=== PATIENT | male | born 1965 | race Caucasian/White ===

== ENCOUNTER 2016-07-17 16:03 | Emergency (ER) | payer MEDICARE ==
[2016-07-17] MEDS ORDERED: Ondansetron HCl/PF 4 MG/2 ML Vial ONE (16:30)
[2016-07-17 16:45] LABS: ALT (SGPT) 39 U/L (0-55); AST (SGOT) 37 U/L (5-34); Alkaline Phosphatase 68 U/L (40-150); Anion Gap 16 mmol/L (10-20); BUN (Urea Nitrogen) 31 mg/dL (8.9-20.6); Bilirubin, Total 0.7 mg/dL (0.2-1.2); Calc. Creatinine Clearance 0 mL/min (70-130); Calcium 8.3 mg/dL (7.8-10.44); Carbon Dioxide 19 mmol/L (22-29); Chloride 100 mmol/L (98-107); Estimated GFR-MDRD 49; Globulin 4.1 g/dL (2.4-3.5); Lipase 11 U/L (8-78); Protein, Total 7.6 g/dL (6.0-8.3)
[2016-07-17 16:52] LABS: Troponin I Less than 0.010 ng/mL (< 0.028)
[2016-07-17 16:52] LABS: Lactic Acid - Sepsis 3.2 mmol/L (0.5-2.2)
[2016-07-17 17:07] LABS: Hematocrit 45.6 % (42.0-52.0); Mean Platelet Volume 8.3 fL (7.4-10.4); Red Blood Cell (RBC) Count 5.02 mill/uL (4.70-6.10); White Blood Cell (WBC) Count 11.8 thou/uL (4.8-10.8)
[2016-07-17] MEDS ORDERED: Promethazine HCl 25 MG/ML VIAL ONE (17:12)
[2016-07-17 17:49] LABS: Band 28 % (5-11); Neutrophil 68 % (42-75)
--- NOTE | 2016-07-17 22:39 | CT ---
CT ABDOMEN AND PELVIS WITH CONTRAST 07/17/[address] of the abdomen and pelvis was done after an injection of IV contrast. Oral contrast was de ferred by request. There is a large consolidation in the medial basilar portion of the right lower lobe, consistent wit h pneumonia. Additionally, there are some spotty infiltrates developing in the left lower lobe sugge stive of a developing pneumonia here as well. The liver, spleen, pancreas, adrenal glands, kidneys and abdominal aorta all appear normal. The gall bladder is rather large, measuring nearly 11 cm in length, but its grant are not thick, nor do I see any definite gallstones. It may just be reactive due to the right lower lobe pneumonia up above. The bowel gas pattern is normal. There is no distended bowel to suggest obstruction. The appendix ap pears normal. No free air or free fluid is seen. CT of the pelvis shows no masses, fluid collections or inflammatory changes. There is a disc protruding centrally and slightly towards the left at the L5-S1 level with some calc ification in its margin. Additionally, there is a moderate degree of central canal stenosis present at T10-11 due to some ligamentous calcifications and a small canal. IMPRESSION: 1. Dense consolidated right lower lobe pneumonia. 2. Patchy left lower lobe infiltrate presumed to be a developing pneumonia. 3. Gallbladder is enlarged but this may just be reactive due to the pneumonia mentioned above. 4. Central and slightly left sided disc bulge at L5-S1. Central canal stenosis at T10-T11. POS: HOME
--- NOTE | 2016-07-17 22:43 | CT ---
CT OF THE THORAX WITHOUT CONTRAST 07/17/[address], a CT of the chest was done. Axial slices were acquired, then coronal rec onstructions were done. There is a very dense right lower lobe consolidation with air bronchograms consistent with a pneumon ia. Additionally, there is patchy infiltrate forming in the left lower lobe consistent with a develo ping pneumonia. There may be a small amount of streaking in the lingula as well. There are no large effusions. No pulmonary masses were appreciated on this noncontrast study. The mediastinum showed no definite mass within the limitations of a noncontrast study. There are a l arge number of small nodes in the carinal region and anterior to the marisela, not unexpected given th e above findings. There is no pericardial fluid evident. IMPRESSION: Dense right lower lobe pneumonia. Developing left lower lobe pneumonia. POS: HOME
== END 2016-07-17 17:35 | disposition home or self-care (01) ==
LOC: BURERS 16:03
DX: J18.9 Pneumonia, unspecified organism (principal); I10 Essential (primary) hypertension; J45.909 Unspecified asthma, uncomplicated; F31.9 Bipolar disorder, unspecified; F17.210 Nicotine dependence, cigarettes, uncomplicated
CPT/HCPCS: 36415; 71250; 74177; 80053; 82553; 83605; 83690; 84484; 85025; 93005; 96361; 96374; 96375; J2405; J2550

== ENCOUNTER 2016-07-18 10:10 | Outpatient (CLI) | payer MEDICARE ==
[2016-07-18 11:11] LABS: Anion Gap 12 mmol/L (10-20); LDL Cholesterol, Calculated 37 mg/dL
[2016-07-18 12:05] LABS: ALT (SGPT) 38 U/L (0-55); AST (SGOT) 44 U/L (5-34); Alkaline Phosphatase 100 U/L (40-150); BUN (Urea Nitrogen) 25 mg/dL (8.9-20.6); Bilirubin, Total 1.3 mg/dL (0.2-1.2); Calc. Creatinine Clearance 0 mL/min (70-130); Calcium 7.6 mg/dL (7.8-10.44); Carbon Dioxide 20 mmol/L (22-29); Chloride 106 mmol/L (98-107); Estimated GFR-MDRD 73; Globulin 3.2 g/dL (2.4-3.5); Protein, Total 6.3 g/dL (6.0-8.3)
[2016-07-18 12:47] LABS: Hemoglobin A1c 4.8 % (4.0-6.0)
[2016-07-18 13:21] LABS: Band 16 % (5-11); Hematocrit 41.7 % (42.0-52.0); Neutrophil 79 % (42-75); Red Blood Cell (RBC) Count 4.58 mill/uL (4.70-6.10); White Blood Cell (WBC) Count 6.9 thou/uL (4.8-10.8)
== END 2016-07-18 10:11 | disposition home or self-care (01) ==
LOC: HPCALD 10:10
PROVIDERS: ATTEND Family Medicine
DX: R73.9 Hyperglycemia, unspecified (principal); D72.825 Bandemia; E87.1 Hypo-osmolality and hyponatremia; N28.9 Disorder of kidney and ureter, unspecified; R74.0 Nonspecific elevation of levels of transaminase and lactic acid dehydrogenase [LDH]; I10 Essential (primary) hypertension; E29.1 Testicular hypofunction; N52.9 Male erectile dysfunction, unspecified
CPT/HCPCS: 36415; 80053; 80061; 83036; 84153; 84403; 84443; 85025

== ENCOUNTER 2016-07-21 05:40 | Emergency (ER) | payer MEDICARE ==
[2016-07-21] MEDS ORDERED: HYDROcodone/Acetaminophen 5/325 mg Tablet ONE (06:07)
--- NOTE | 2016-07-21 11:25 | RAD ---
CHEST 2 VIEWS: Date: 07/21/16 Comparison is made with the 07/17/16 CT scan which showed a dense right lower lobe pneumonia, as wel l as a developing pneumonia in the left lower lobe. The dense right lower lobe pneumonia is still present. It is difficult to compare exactly with the C T. The infiltrative changes in the left lower lobe, however, appear to have worsened some in the int erval. The upper lobes are clear. There are no large effusions, but there could be small ones presen t. IMPRESSION: Bibasilar pneumonia. The left lower lobe infiltrate is probably a little worse than it was when the CT was done. CODE T. POS: HOME
== END 2016-07-21 06:58 | disposition left against medical advice (07) ==
LOC: BURERS 05:40
DX: J18.9 Pneumonia, unspecified organism (principal); I10 Essential (primary) hypertension; J45.909 Unspecified asthma, uncomplicated; F17.210 Nicotine dependence, cigarettes, uncomplicated; F31.9 Bipolar disorder, unspecified
CPT/HCPCS: 71020

== ENCOUNTER 2016-08-01 13:01 | Outpatient (CLI) | payer MEDICARE | END 2016-08-01 13:02 | disposition home or self-care (01) | LOC: HPCALD 13:01 | PROVIDERS: ATTEND Family Medicine | DX: E29.1 Testicular hypofunction (principal) | CPT/HCPCS: 36415; 84403 ==

== ENCOUNTER 2016-08-03 11:37 | Outpatient (CLI) | payer MEDICARE | END 2016-08-03 11:38 | LOC: HPCALD 11:37 | PROVIDERS: ATTEND Family Medicine | DX: E29.1 Testicular hypofunction (principal) | CPT/HCPCS: 36415; 84403 ==

== ENCOUNTER 2016-08-06 16:50 | Outpatient (CLI) | payer MEDICARE ==
--- NOTE | 2016-08-06 23:22 | RAD ---
CHEST TWO VIEWS: History: Community acquired pneumonia. Comparison: 07-21-16 FINDINGS: The bibasilar airspace opacities have improved. There is calcific tendinosis of the right rotator c uff. No pneumothorax or large effusion. Moderate spondylitic changes of the thoracic spine. IMPRESSION: 1. Improving bibasilar pneumonia. Minimal infiltrates remain. POS: [facility]
== END 2016-08-06 16:51 | disposition home or self-care (01) ==
LOC: BURRAD 16:50
PROVIDERS: ATTEND Family Medicine
DX: J18.9 Pneumonia, unspecified organism (principal)
CPT/HCPCS: 71020

== ENCOUNTER 2017-01-27 15:08 | Emergency (ER) | payer MEDICARE ==
[2017-01-27] MEDS ORDERED: Ondansetron ODT 4 MG TAB ONE (15:32)
[2017-01-27] MEDS ORDERED: Prochlorperazine 10 MG/2 ML VIAL ONE (15:35)
[2017-01-27] MEDS ORDERED: methylPREDNISolone Sod Succ/PF 125 MG/2 ML VIAL ONE (15:35)
[2017-01-27] MEDS ORDERED: diphenhydrAMINE HCl 50 MG/ML 1 ML VIAL ONE (15:35)
[2017-01-27 15:41] LABS: Eosinophils 2 % (0-10); Hemoglobin 14.8 g/dL (14.0-18.0); Lymphocytes 25 % (21-51); MDiff Complete? YES; Mean Corpuscular HGB CONC 34.2 g/dL (32.0-36.0); Mean Corpuscular Hemoglobin 31.6 pg (27.0-31.0); Mean Corpuscular Volume 92.4 fl (80.0-94.0); Mean Platelet Volume 6.7 fL (7.4-10.4); Monocytes 14 % (0-10); Neutrophil 59 % (42-75); Platelet Count 174 thou/uL (130-400); RBC Distribution Width 12.4 % (11.5-14.5); Red Blood Cell (RBC) Count 4.68 mill/uL (4.70-6.10); White Blood Cell (WBC) Count 4.4 thou/uL (4.8-10.8)
[2017-01-27 15:46] LABS: Anion Gap 9 mmol/L (10-20); BUN (Urea Nitrogen) 14 mg/dL (8.9-20.6); Calc. Creatinine Clearance 0 mL/min (70-130); Calcium 9.1 mg/dL (7.8-10.44); Carbon Dioxide 26 mmol/L (22-29); Chloride 106 mmol/L (98-107); Estimated GFR-MDRD Greater than 90; Glucose 103 mg/dL (70-105); Potassium 4.3 mmol/L (3.5-5.1); Sodium 137 mmol/L (136-145)
== END 2017-01-27 16:30 | disposition home or self-care (01) ==
LOC: BURERS 15:08
DX: I10 Essential (primary) hypertension (principal); F31.9 Bipolar disorder, unspecified; J45.909 Unspecified asthma, uncomplicated; F17.210 Nicotine dependence, cigarettes, uncomplicated; Z91.14 Patient's other noncompliance with medication regimen
CPT/HCPCS: 36415; 80048; 85025; 96374; 96375; J0780; J1200; J2930; Q0162

== ENCOUNTER 2017-04-06 16:10 | Emergency (ER) | payer MEDICARE ==
[2017-04-06] MEDS ORDERED: Lisinopril 5 MG TAB ONE (16:28)
[2017-04-06] MEDS ORDERED: cloNIDine 0.1 MG TAB ONE (16:28)
== END 2017-04-06 16:31 | disposition home or self-care (01) ==
LOC: BURERS 16:10
DX: I10 Essential (primary) hypertension (principal); Z91.14 Patient's other noncompliance with medication regimen; J45.909 Unspecified asthma, uncomplicated; F31.9 Bipolar disorder, unspecified; F17.210 Nicotine dependence, cigarettes, uncomplicated; Z79.899 Other long term (current) drug therapy
CPT/HCPCS: 99283

== ENCOUNTER 2017-04-26 14:37 | Emergency (ER) | payer MEDICARE ==
[2017-04-26] MEDS ORDERED: cloNIDine 0.1 MG TAB ONE (15:30)
[2017-04-26] MEDS ORDERED: predniSONE 20 MG TAB ONE (15:30)
[2017-04-26] MEDS ORDERED: Lisinopril 5 MG TAB ONE (15:30)
--- NOTE | 2017-04-26 20:29 | RAD ---
LUMBAR SPINE THREE VIEWS 04/26/17 Degenerative disc disease is present at L5-S1. There is disc space narrowing and osteophytes here. Mi nimal osteophytes are seen elsewhere. Slight wedging of T11-L1 is probably physiologic. No acute frac ture or area of bony destruction was seen. The SI joints are symmetrical. IMPRESSION: Degenerative disc disease at L5-S1. POS: HOME
--- NOTE | 2017-04-26 20:49 | RAD ---
RIGHT SHOULDER THREE VIEWS 04/26/17 There has been surgery in this shoulder but no prior views were available for comparison. Screws are present through the humeral head which is mildly deformed. There are osseous densities bet ween the humeral head and the acromion process that were present on prior chest films. I do not see a n acute fracture or dislocation. Heterotopic bone along the inferior aspect of the glenoid fossa is a n old finding. The AC joint is widened. The glenohumeral joint is irregular, particularly the glenoid fossa, though this is not a new finding. IMPRESSION: Postoperative and significant degenerative change but no acute traumatic findings. POS: HOME
== END 2017-04-26 15:36 | disposition home or self-care (01) ==
LOC: BURERS 14:37
DX: M54.5 Low back pain (principal); M25.511 Pain in right shoulder; I10 Essential (primary) hypertension; Z91.14 Patient's other noncompliance with medication regimen; F17.210 Nicotine dependence, cigarettes, uncomplicated; J45.909 Unspecified asthma, uncomplicated; F41.9 Anxiety disorder, unspecified; F31.9 Bipolar disorder, unspecified; Z79.899 Other long term (current) drug therapy; V44.6XXA Car passenger injured in collision with heavy transport vehicle or bus in traffic accident, initial encounter
CPT/HCPCS: 72100; J7506

== ENCOUNTER 2017-05-30 20:22 | Emergency (ER) | payer MEDICARE ==
[2017-05-30] MEDS ORDERED: Lisinopril 5 MG TAB ONE (21:00)
[2017-05-30] MEDS ORDERED: cloNIDine 0.1 MG TAB ONE (21:00)
== END 2017-05-30 21:10 | disposition home or self-care (01) ==
LOC: BURERS 20:22
DX: I10 Essential (primary) hypertension (principal); F17.210 Nicotine dependence, cigarettes, uncomplicated; J45.909 Unspecified asthma, uncomplicated; F41.9 Anxiety disorder, unspecified; F31.9 Bipolar disorder, unspecified; Z79.899 Other long term (current) drug therapy
CPT/HCPCS: 99283

== ENCOUNTER 2017-07-13 18:02 | Emergency (ER) | payer MEDICARE | END 2017-07-13 18:21 | disposition home or self-care (01) | LOC: BURERS 18:02 | DX: I10 Essential (primary) hypertension (principal); M19.90 Unspecified osteoarthritis, unspecified site; J45.909 Unspecified asthma, uncomplicated; F31.9 Bipolar disorder, unspecified; F41.9 Anxiety disorder, unspecified; F17.210 Nicotine dependence, cigarettes, uncomplicated; Z79.899 Other long term (current) drug therapy | CPT/HCPCS: 99283 ==

== ENCOUNTER 2017-09-06 06:46 | Emergency (ER) | payer MEDICARE ==
[2017-09-06] MEDS ORDERED: Ondansetron HCl/PF 4 MG/2 ML Vial ONE ×2 (07:25→09:16)
[2017-09-06 07:29] LABS: #Lymphocytes 0.8 thou/uL (1.20-3.40); #Monocytes 0.7 thou/uL (0.11-0.59); #Neutrophils 6.3 thou/uL (1.40-6.50); %Basophils 0.6 % (0.0-1.0); %Eosinophils 0.1 % (0.0-10.0); %Lymphocytes 9.9 % (21.0-51.0); %Monocytes 9.4 % (0.0-10.0); Hemoglobin 16.2 g/dL (14.0-18.0); Mean Corpuscular HGB CONC 33.8 g/dL (32.0-36.0); Mean Corpuscular Hemoglobin 29.8 pg (27.0-31.0); Mean Corpuscular Volume 88.4 fl (80.0-94.0); Mean Platelet Volume 6.4 fL (7.4-10.4); Platelet Count 303 thou/uL (130-400); RBC Distribution Width 12.6 % (11.5-14.5); Red Blood Cell (RBC) Count 5.43 mill/uL (4.70-6.10); White Blood Cell (WBC) Count 7.9 thou/uL (4.8-10.8)
[2017-09-06 07:47] LABS: ALT (SGPT) 103 U/L (8-55); AST (SGOT) 72 U/L (5-34); Albumin 4.7 g/dL (3.5-5.0); Alkaline Phosphatase 91 U/L (40-150); Anion Gap 18 mmol/L (10-20); BUN (Urea Nitrogen) 13 mg/dL (8.9-20.6); Calc. Creatinine Clearance 0 mL/min (70-130); Calcium 10.1 mg/dL (7.8-10.44); Carbon Dioxide 22 mmol/L (22-29); Chloride 105 mmol/L (98-107); Estimated GFR-MDRD 80; Globulin 4.1 g/dL (2.4-3.5); Glucose 111 mg/dL (70-105); Lipase 35 U/L (8-78); Potassium 3.7 mmol/L (3.5-5.1); Protein, Total 8.8 g/dL (6.0-8.3); Sodium 141 mmol/L (136-145)
[2017-09-06] MEDS ORDERED: Promethazine HCl 25 MG/ML VIAL ONE (08:20)
[2017-09-06] MEDS ORDERED: Iopamidol 370 76% 100 ML VIAL ONE (09:00)
[2017-09-06] MEDS ORDERED: Ketorolac Tromethamine 30 MG/ML VIAL ONE (09:16)
[2017-09-06] MEDS ORDERED: Prochlorperazine 10 MG/2 ML VIAL ONE ×3 (10:13→11:32)
[2017-09-06] MEDS ORDERED: Lisinopril 20 MG TAB ONE (10:38)
[2017-09-06] MEDS ORDERED: cloNIDine 0.1 MG TAB ONE (10:38)
--- NOTE | 2017-09-06 19:46 | RAD ---
ACUTE ABDOMEN SERIES 09/06/17 Supine and erect films show no free air beneath the diaphragm. Gas pattern is unremarkable with no si gn of obstruction, but there is considerable fecal material in the colon. No calcifications of concer n were seen in the abdomen. The bony structures are unremarkable. A chest film in the series shows a normal sized heart and clear lungs. IMPRESSION: Possible mild constipation. Exam otherwise unremarkable. POS: HOME
--- NOTE | 2017-09-06 20:03 | CT ---
CT ABDOMEN AND PELVIS WITH CONTRAST: 09/06/[address] of the abdomen and pelvis was performed for evaluation of nausea and vomiting. Axial slices were acquired, then coronal reconstructions were done. The lung bases are clear except for some minor left basilar scarring or atelectasis. There might be a few small calcifications in the distal LAD, but this is difficult to be certain about. Otherwise, th ere really does not appear to be significant calcification in the aorta. The liver, spleen, pancreas, adrenal glands, kidneys, and abdominal aorta showed no acute finding. The gallbladder is rather larg e, measuring just over 11 cm in length. No stones were detected within it, nor was the wall thick. Th ere may be some cortical scarring in the left kidney from a prior infection. The bowel is nondistended with no sign of obstruction. There is an abundant amount of fecal material in the colon. No free air or free fluid was seen. CT of the pelvis shows no pelvic masses, fluid collections, or inflammatory changes. The urinary blad irma is moderately distended. There is a fat filled inguinal hernia on the left side. There is some mi ld central bulging of the L5-S1 disc, concentric bulging of the L4-L5 disc. IMPRESSION: 1. Very large gallbladder. No stones or wall thickening appreciated. 2. Small hiatal hernia. 3. Mild constipation. POS: HOME
== END 2017-09-06 12:03 | disposition home or self-care (01) ==
LOC: BURERS 06:46
DX: A08.4 Viral intestinal infection, unspecified (principal); I10 Essential (primary) hypertension; J45.909 Unspecified asthma, uncomplicated; F41.9 Anxiety disorder, unspecified; F31.9 Bipolar disorder, unspecified; G47.00 Insomnia, unspecified; F17.210 Nicotine dependence, cigarettes, uncomplicated; Z79.899 Other long term (current) drug therapy
CPT/HCPCS: 74022; 74177; 80053; 83690; 85025; 93005; 94760; 96361; 96365; 96367; 96375; 96376; A4216; J0780; J1885; J2405; J2550

== ENCOUNTER 2018-09-03 20:33 | Emergency (ER) | payer MEDICARE ==
[2018-09-03] MEDS ORDERED: Cyclopentolate 1% Opth Drop 2 ML BOT ONE (22:06)
[2018-09-03] MEDS ORDERED: HYDROcodone/Acetaminophen 10/325 mg Tablet ONE (22:08)
[2018-09-03] MEDS ORDERED: Ibuprofen 800 MG TAB ONE (22:09)
[2018-09-03] MEDS ORDERED: Tobramycin/dex OPTH 2.5 ML BOT EA EYE SCH (22:15)
[2018-09-03] MEDS ORDERED: oFLOXacin 0.3% Opth 5 ML BOT ONE (22:15)
[2018-09-03] MEDS ORDERED: Fluorescein Opthalmic Strip EA EYE SCH (22:15)
[2018-09-03] MEDS ORDERED: Ketorolac Tromethamine 60 MG/2 ML VIAL ONE (22:19)
== END 2018-09-03 22:25 | disposition home or self-care (01) ==
LOC: BURERS 20:33
DX: T15.02XA Foreign body in cornea, left eye, initial encounter (principal); T15.01XA Foreign body in cornea, right eye, initial encounter; I10 Essential (primary) hypertension; J45.909 Unspecified asthma, uncomplicated; F41.9 Anxiety disorder, unspecified; F31.9 Bipolar disorder, unspecified; G47.00 Insomnia, unspecified; F17.210 Nicotine dependence, cigarettes, uncomplicated; Z79.899 Other long term (current) drug therapy
CPT/HCPCS: 65205; J1885

== ENCOUNTER 2018-11-28 01:17 | Emergency (ER) | payer MEDICARE ==
[2018-11-28] MEDS ORDERED: methylPREDNISolone Sod Succ/PF 125 MG/2 ML VIAL ONE (01:48)
== END 2018-11-28 02:03 | disposition home or self-care (01) ==
LOC: BURERS 01:17
DX: M54.41 Lumbago with sciatica, right side (principal); I10 Essential (primary) hypertension; J45.909 Unspecified asthma, uncomplicated; F41.9 Anxiety disorder, unspecified; F31.9 Bipolar disorder, unspecified; G47.00 Insomnia, unspecified; F17.290 Nicotine dependence, other tobacco product, uncomplicated; Z79.899 Other long term (current) drug therapy
CPT/HCPCS: 96372; 99283; J2930

== ENCOUNTER 2019-01-22 14:29 | Emergency (ER) | payer MEDICARE ==
[2019-01-22] MEDS ORDERED: Adacel (T-DAP) 0.5 ML SYRINGE ONE (15:27)
== END 2019-01-22 15:33 | disposition home or self-care (01) ==
LOC: BURERS 14:29
DX: S40.812A Abrasion of left upper arm, initial encounter (principal); S40.811A Abrasion of right upper arm, initial encounter; S80.811A Abrasion, right lower leg, initial encounter; I10 Essential (primary) hypertension; J45.909 Unspecified asthma, uncomplicated; F41.9 Anxiety disorder, unspecified; F31.9 Bipolar disorder, unspecified; G47.00 Insomnia, unspecified; F17.290 Nicotine dependence, other tobacco product, uncomplicated; Z79.899 Other long term (current) drug therapy; X58.XXXA Exposure to other specified factors, initial encounter
CPT/HCPCS: 90715; 99282

== ENCOUNTER 2019-09-08 15:11 | Emergency (ER) | payer MEDICARE | END 2019-09-08 15:24 | disposition home or self-care (01) | LOC: BURERS 15:11 | DX: S61.211A Laceration without foreign body of left index finger without damage to nail, initial encounter (principal); F41.9 Anxiety disorder, unspecified; F31.9 Bipolar disorder, unspecified; G47.00 Insomnia, unspecified; G31.84 Mild cognitive impairment of uncertain or unknown etiology; F17.290 Nicotine dependence, other tobacco product, uncomplicated; J45.909 Unspecified asthma, uncomplicated; I10 Essential (primary) hypertension; Z79.899 Other long term (current) drug therapy; W26.0XXA Contact with knife, initial encounter | CPT/HCPCS: 12001 ==

== ENCOUNTER 2019-10-02 11:18 | Outpatient (CLI) | payer MEDICARE ==
[2019-10-02 11:44] LABS: #Lymphocytes 1.5 thou/uL (1.20-3.40); #Monocytes 0.5 thou/uL (0.11-0.59); #Neutrophils 2.7 thou/uL (1.40-6.50); %Basophils 0.7 % (0.0-1.0); %Lymphocytes 31.5 % (21.0-51.0); %Monocytes 9.7 % (0.0-10.0); %Neutrophils 58.1 % (42.0-75.0); Hemoglobin 14.4 g/dL (14.0-18.0); Mean Corpuscular HGB CONC 31.2 g/dL (32.0-36.0); Mean Corpuscular Hemoglobin 28.2 pg (27.0-31.0); Mean Corpuscular Volume 90.5 fL (78.0-98.0); Mean Platelet Volume 7.3 fL (7.4-10.4); Platelet Count 192 thou/uL (130-400); RBC Distribution Width 14.2 % (11.5-14.5); Red Blood Cell (RBC) Count 5.09 mill/uL (4.70-6.10); White Blood Cell (WBC) Count 4.7 thou/uL (4.8-10.8)
[2019-10-02 12:04] LABS: ALT (SGPT) 58 U/L (8-55); AST (SGOT) 47 U/L (5-34); Albumin 4.1 g/dL (3.5-5.0); Alkaline Phosphatase 108 U/L (40-110); Anion Gap 9 mmol/L (10-20); BUN (Urea Nitrogen) 9 mg/dL (8.4-25.7); Bilirubin, Total 0.5 mg/dL (0.2-1.2); Calc. Creatinine Clearance 0 mL/min (70-130); Calcium 8.9 mg/dL (7.8-10.44); Carbon Dioxide 27 mmol/L (22-29); Chloride 104 mmol/L (98-107); Estimated GFR-MDRD 89; Globulin 3.6 g/dL (2.4-3.5); Glucose 137 mg/dL (70-105); Lipase 47 U/L (8-78); Potassium 4.4 mmol/L (3.5-5.1); Protein, Total 7.7 g/dL (6.0-8.3); Sodium 136 mmol/L (136-145)
[2019-10-02] MEDS ORDERED: Iopamidol 370 76% 100 ML VIAL ONE (13:06)
--- NOTE | 2019-10-02 18:15 | CT ---
CT ABDOMEN AND PELVIS WITH CONTRAST: 10/02/[address] of the abdomen and pelvis was done for evaluation of right upper quadrant pain. comparison is made with the prior scans of 09/06/17 and 07/17/16. The lung bases are clear except for some dependent atelectasis. The liver, spleen, pancreas, adrenal glands, kidneys, and abdominal aorta showed no acute findings. The gallbladder is generous in size measuring 10 cm long, however, this is actually smaller than it w as on either of the two prior scans. Its wall does not seem thick and I do not detect calcifications in it. The bowel shows no distention or wall thickening. The appendix appears normal. There is no free air o r free fluid. No inflammatory change is seen around bowel. CT of the pelvis shows no pelvic masses, fluid collections, or inflammatory change. A small fat fille d left inguinal hernia was noted. IMPRESSION: Generous sized gallbladder, though still smaller than most of his prior scans. My presumption is that it tends to run big in this patient. Nevertheless, if clinical symptoms point to this location, then ultrasound or a HIDA scan could be useful. POS: HOME
== END 2019-10-02 11:19 | disposition home or self-care (01) ==
LOC: BURCT 11:18
PROVIDERS: ATTEND Family Medicine
DX: B18.2 Chronic viral hepatitis C (principal); R10.11 Right upper quadrant pain
CPT/HCPCS: 36415; 74177; 80053; 83690; 85025; 87522; Q9967

== ENCOUNTER 2020-03-22 13:57 | Emergency (ER) | payer MEDICARE | END 2020-03-22 14:18 | disposition home or self-care (01) | LOC: BURERS 13:57 | DX: K11.5 Sialolithiasis (principal); I10 Essential (primary) hypertension; J45.909 Unspecified asthma, uncomplicated; F31.9 Bipolar disorder, unspecified; F41.9 Anxiety disorder, unspecified; G47.00 Insomnia, unspecified; F17.210 Nicotine dependence, cigarettes, uncomplicated; Z79.899 Other long term (current) drug therapy | CPT/HCPCS: 99283 ==

== ENCOUNTER 2020-07-14 13:29 | Emergency (ER) | payer MEDICARE ==
[2020-07-14] MEDS ORDERED: Morphine 10 MG/ML VIAL ONE (15:01)
[2020-07-14] MEDS ORDERED: Morphine 4 MG/ML VIAL ONE (16:19)
--- NOTE | 2020-07-14 17:23 | RAD ---
RIGHT ANKLE 3 VIEWS: DATE: 07/14/2020. FINDINGS: An oblique fracture of the distal fibula is present with slight displacement. The distal tibia appea rs intact. The calcaneus appears intact. IMPRESSION: Distal fibular fracture. POS: HOME
== END 2020-07-14 17:20 | disposition home or self-care (01) ==
LOC: BURERS 13:29
DX: S82.831A Other fracture of upper and lower end of right fibula, initial encounter for closed fracture (principal); I10 Essential (primary) hypertension; Z79.899 Other long term (current) drug therapy; F17.210 Nicotine dependence, cigarettes, uncomplicated; W10.9XXA Fall (on) (from) unspecified stairs and steps, initial encounter; Y93.01 Activity, walking, marching and hiking
CPT/HCPCS: 29515; 96372; J2270

== ENCOUNTER 2020-09-27 09:58 | Emergency (ER) | payer OTHER, MEDICARE ==
[~2020-09-27 09:58] MED LIST: Iopamidol 370 76% 100 ML VIAL ONE
[2020-09-27] MEDS ORDERED: Morphine 4 MG/ML VIAL ONE (10:38)
[2020-09-27] MEDS ORDERED: diphenhydrAMINE 50 MG/ML VIAL ONE (10:39)
[2020-09-27] MEDS ORDERED: diphenhydrAMINE 12.5 MG/5 ML UDCUP ONE (10:39)
[2020-09-27 10:53] LABS: #Lymphocytes 1.2 thou/uL (1.20-3.40); #Monocytes 0.9 thou/uL (0.11-0.59); #Neutrophils 4.2 thou/uL (1.40-6.50); %Basophils 0.7 % (0.0-1.0); %Eosinophils 0.6 % (0.0-10.0); %Monocytes 13.4 % (0.0-10.0); %Neutrophils 66.4 % (42.0-75.0); Hemoglobin 9.9 g/dL (14.0-18.0); Mean Corpuscular HGB CONC 30.2 g/dL (32.0-36.0); Mean Corpuscular Hemoglobin 22.8 pg (27.0-31.0); Mean Corpuscular Volume 75.4 fL (78.0-98.0); Mean Platelet Volume 6.3 fL (7.4-10.4); Platelet Count 183 thou/uL (130-400); RBC Distribution Width 19.1 % (11.5-14.5); Red Blood Cell (RBC) Count 4.34 mill/uL (4.70-6.10); White Blood Cell (WBC) Count 6.3 thou/uL (4.8-10.8)
[2020-09-27 11:10] LABS: ALT (SGPT) 63 U/L (8-55); AST (SGOT) 42 U/L (5-34); Albumin 3.9 g/dL (3.5-5.0); Alkaline Phosphatase 119 U/L (40-110); Anion Gap 12 mmol/L (10-20); BUN (Urea Nitrogen) 11 mg/dL (8.4-25.7); Bilirubin, Total Less than 0.2 mg/dL (0.2-1.2); Calc. Creatinine Clearance 0 mL/min (70-130); Carbon Dioxide 23 mmol/L (22-29); Chloride 106 mmol/L (98-107); Globulin 3.6 g/dL (2.4-3.5); Glucose 152 mg/dL (70-105); Potassium 3.9 mmol/L (3.5-5.1); Protein, Total 7.5 g/dL (6.0-8.3); Sodium 137 mmol/L (136-145)
[2020-09-27 11:16] LABS: Anisocytosis SLIGHT = 6-15 cells (100X) (0-5/hpf); MDiff Complete? YES; Microcytosis SLIGHT = 6-15 cells (100X) (0-5/hpf); Platelet Morphology Comment Appears Adequate
[2020-09-27 11:59] LABS: Bilirubin Negative (Negative); Blood, Urine Negative (Negative); Clarity Clear (Clear); Glucose, Urine (Dipstick) Negative (Negative); Ketone, Urine Negative (Negative); Leukocyte Negative (Negative); Nitrite Negative (Negative); Protein, Urine (Dipstick) Negative (Neg-Trace); Specific Gravity, Urine 1.015 (1.005-1.030); Urobilinogen 0.2 mg/dL (Less than 2); pH, Urine 7.5 (5.0-9.0)
== END 2020-09-27 12:15 | disposition home or self-care (01) ==
LOC: BURERS 09:58
DX: S20.219A Contusion of unspecified front wall of thorax, initial encounter (principal); I10 Essential (primary) hypertension; F17.210 Nicotine dependence, cigarettes, uncomplicated; Z79.899 Other long term (current) drug therapy; V59.60XA Unspecified occupant of pick-up truck or van injured in collision with unspecified motor vehicles in traffic accident, initial encounter
CPT/HCPCS: 36415; 71260; 74177; 80053; 81003; 84484; 85025; 93005; 94760; 96374; 96375; J1200; J2270; Q0163; Q9967

== ENCOUNTER 2020-10-03 21:06 | Emergency (ER) | payer OTHER, MEDICARE ==
[2020-10-03 23:24] LABS: Hemoglobin 10.1 g/dL (14.0-18.0); Mean Corpuscular HGB CONC 29.9 g/dL (32.0-36.0); Mean Corpuscular Hemoglobin 22.4 pg (27.0-31.0); Mean Platelet Volume 6.2 fL (7.4-10.4); Platelet Count 267 thou/uL (130-400); RBC Distribution Width 18.7 % (11.5-14.5); Red Blood Cell (RBC) Count 4.52 mill/uL (4.70-6.10); White Blood Cell (WBC) Count 8.1 thou/uL (4.8-10.8)
[2020-10-03 23:39] LABS: ALT (SGPT) 60 U/L (8-55); AST (SGOT) 39 U/L (5-34); Albumin 3.9 g/dL (3.5-5.0); Alkaline Phosphatase 114 U/L (40-110); Anion Gap 12 mmol/L (10-20); BUN (Urea Nitrogen) 10 mg/dL (8.4-25.7); Bilirubin, Total 0.2 mg/dL (0.2-1.2); Calc. Creatinine Clearance 0 mL/min (70-130); Calcium 8.5 mg/dL (7.8-10.44); Carbon Dioxide 25 mmol/L (22-29); Chloride 102 mmol/L (98-107); Globulin 3.8 g/dL (2.4-3.5); Glucose 104 mg/dL (70-105); Lipase 66 U/L (8-78); Potassium 4.3 mmol/L (3.5-5.1); Protein, Total 7.7 g/dL (6.0-8.3); Sodium 135 mmol/L (136-145)
[2020-10-03] MEDS ORDERED: Morphine 4 MG/ML VIAL ONE (23:49)
[2020-10-03] MEDS ORDERED: Ondansetron PF 4 MG/2 ML Vial ONE (23:49)
[2020-10-04] LABS: #Basophils 0.1 thou/uL (0.0-0.2); #Eosinphils 0.2 thou/uL (0.0-0.7); #Monocytes 1.2 thou/uL (0.11-0.59); #Neutrophils 4.6 thou/uL (1.40-6.50); %Basophils 1.3 % (0.0-1.0); %Eosinophils 2.2 % (0.0-10.0); %Lymphocytes 25.2 % (21.0-51.0); %Monocytes 14.2 % (0.0-10.0); Hypochromia SLIGHT = 6-15 cells (100X) (0-5/hpf); MDiff Complete? YES; Microcytosis SLIGHT = 6-15 cells (100X) (0-5/hpf); Platelet Morphology Comment Appears Adequate; Poikilocytosis SLIGHT = 6-15 cells (100X) (0-5/hpf)
[2020-10-04] MEDS ORDERED: HYDROcodone/Acetaminophen 5/325 mg Tablet ONE (00:58)
[2020-10-04] MEDS ORDERED: Morphine 4 MG/ML VIAL ONE (01:35)
== END 2020-10-04 01:41 | disposition home or self-care (01) ==
LOC: BURERS 21:06
DX: S20.213A Contusion of bilateral front wall of thorax, initial encounter (principal); R74.8 Abnormal levels of other serum enzymes; R10.11 Right upper quadrant pain; I10 Essential (primary) hypertension; F17.210 Nicotine dependence, cigarettes, uncomplicated; Z86.19 Personal history of other infectious and parasitic diseases; Z79.899 Other long term (current) drug therapy; V89.2XXA Person injured in unspecified motor-vehicle accident, traffic, initial encounter
CPT/HCPCS: 36415; 71046; 80053; 83690; 83880; 84484; 85025; 93005; 96374; 96375; 96376; J2270; J2405

== ENCOUNTER 2021-01-12 08:34 | Emergency (ER) | payer MEDICARE ==
[2021-01-12] MEDS ORDERED: Morphine 2 MG/ML VIAL ONE (09:21)
[2021-01-12] MEDS ORDERED: Promethazine 25 MG TAB ONE (09:21)
[2021-01-12] MEDS ORDERED: methylPREDNISolone Sod Succ/PF 125 MG/2 ML VIAL ONE (10:06)
== END 2021-01-12 10:10 | disposition home or self-care (01) ==
LOC: BURERS 08:34
DX: M54.41 Lumbago with sciatica, right side (principal); I10 Essential (primary) hypertension; F17.210 Nicotine dependence, cigarettes, uncomplicated
CPT/HCPCS: 96372; 99283; J2270; J2930; Q0169

== ENCOUNTER 2021-04-21 11:25 | Emergency (ER) | payer MEDICARE ==
[2021-04-21] MEDS ORDERED: Hyoscyamine Sulfate SL 0.125 mg Tablet ONE (12:08)
[2021-04-21] MEDS ORDERED: Ciprofloxacin 500 MG TAB ONE (12:08)
== END 2021-04-21 12:30 | disposition home or self-care (01) ==
LOC: BURERS 11:25
DX: R19.7 Diarrhea, unspecified (principal); I10 Essential (primary) hypertension; M19.90 Unspecified osteoarthritis, unspecified site; F17.210 Nicotine dependence, cigarettes, uncomplicated
CPT/HCPCS: 71046; 87045; 87046; 87177; 87427; 87449; 99284

== ENCOUNTER 2021-10-04 14:17 | Emergency (ER) | payer MEDICARE ==
[2021-10-04] MEDS ORDERED: Fentanyl 100 MCG/2 ML VIAL ONE (14:30)
[2021-10-04 14:33] LABS: #Lymphocytes 1.5 thou/uL (1.20-3.40); #Monocytes 0.7 thou/uL (0.11-0.59); #Neutrophils 5.4 thou/uL (1.40-6.50); %Basophils 0.6 % (0.0-1.0); %Eosinophils 0.2 % (0.0-10.0); %Lymphocytes 19.5 % (21.0-51.0); %Monocytes 8.8 % (0.0-10.0); %Neutrophils 70.9 % (42.0-75.0); Hemoglobin 13.3 g/dL (14.0-18.0); Mean Corpuscular Hemoglobin 28.5 pg (27.0-31.0); Mean Corpuscular Volume 86.4 fL (78.0-98.0); Platelet Count 284 thou/uL (130-400); RBC Distribution Width 15.2 % (11.5-14.5); Red Blood Cell (RBC) Count 4.67 mill/uL (4.70-6.10); White Blood Cell (WBC) Count 7.7 thou/uL (4.8-10.8)
[2021-10-04 14:46] LABS: ALT (SGPT) 42 U/L (8-55); AST (SGOT) 48 U/L (5-34); Albumin 4.1 g/dL (3.5-5.0); Alkaline Phosphatase 78 U/L (40-110); Anion Gap 17 mmol/L (10-20); BUN (Urea Nitrogen) 8 mg/dL (8.4-25.7); Bilirubin, Total 0.6 mg/dL (0.2-1.2); Calc. Creatinine Clearance 0 mL/min (70-130); Calcium 8.6 mg/dL (7.8-10.44); Carbon Dioxide 21 mmol/L (22-29); Chloride 103 mmol/L (98-107); Globulin 4.4 g/dL (2.4-3.5); Glucose 103 mg/dL (70-105); Potassium 4.4 mmol/L (3.5-5.1); Protein, Total 8.5 g/dL (6.0-8.3); Sodium 137 mmol/L (136-145)
[2021-10-04] MEDS ORDERED: Ibuprofen 800 MG TAB ONE (14:57)
[2021-10-04] MEDS ORDERED: chlordiazePOXIDE HCl 25 MG CAP PO SCH (15:00)
[2021-10-04] MEDS ORDERED: Lorazepam 2 MG/ML VIAL ONE (15:13)
[2021-10-04] MEDS ORDERED: Morphine 4 MG/ML VIAL ONE (16:24)
[2021-10-04] MEDS ORDERED: predniSONE 20 MG TAB ONE (17:29)
== END 2021-10-04 17:48 ==
LOC: BURERS 14:17
DX: S39.012A Strain of muscle, fascia and tendon of lower back, initial encounter (principal); M54.41 Lumbago with sciatica, right side; G89.29 Other chronic pain; I10 Essential (primary) hypertension; F17.210 Nicotine dependence, cigarettes, uncomplicated; W19.XXXA Unspecified fall, initial encounter
CPT/HCPCS: 72100; 72192; 80053; 85025; 96372; 96374; J2060; J2270; J3010; J7512

== ENCOUNTER 2021-12-20 06:13 | Emergency (ER) | payer OTHER, MEDICARE ==
[2021-12-20] MEDS ORDERED: Morphine 4 MG/ML VIAL ONE ×2 (06:43→07:05)
[2021-12-20] MEDS ORDERED: CEFAZOLIN 1 GM VIAL ONE (06:44)
[2021-12-20 06:50] LABS: #Basophils 0.1 thou/uL (0.0-0.2); #Eosinphils 0.2 thou/uL (0.0-0.7); #Lymphocytes 3.1 thou/uL (1.20-3.40); #Monocytes 1.1 thou/uL (0.11-0.59); #Neutrophils 5.7 thou/uL (1.40-6.50); %Basophils 1.3 % (0.0-1.0); %Eosinophils 1.8 % (0.0-10.0); %Monocytes 10.8 % (0.0-10.0); %Neutrophils 56.2 % (42.0-75.0); Hemoglobin 14.1 g/dL (14.0-18.0); Mean Corpuscular HGB CONC 33.7 g/dL (32.0-36.0); Mean Corpuscular Hemoglobin 29.9 pg (27.0-31.0); Mean Corpuscular Volume 88.9 fL (78.0-98.0); Mean Platelet Volume 7.1 fL (7.4-10.4); Platelet Count 326 thou/uL (130-400); Red Blood Cell (RBC) Count 4.71 mill/uL (4.70-6.10); White Blood Cell (WBC) Count 10.2 thou/uL (4.8-10.8)
[2021-12-20 06:58] LABS: Prothrombin Time 13.8 sec (12.0-14.7)
[2021-12-20] MEDS ORDERED: Lidocaine 1% (PF) 30 ML VIAL ONE (06:59)
[2021-12-20 07:07] LABS: ALT (SGPT) 47 U/L (8-55); AST (SGOT) 41 U/L (5-34); Albumin 4.6 g/dL (3.5-5.0); Alkaline Phosphatase 70 U/L (40-110); Anion Gap 18 mmol/L (10-20); BUN (Urea Nitrogen) 17 mg/dL (8.4-25.7); Bilirubin, Total 0.4 mg/dL (0.2-1.2); Calc. Creatinine Clearance 0 mL/min (70-130); Calcium 9.4 mg/dL (7.8-10.44); Carbon Dioxide 21 mmol/L (22-29); Chloride 100 mmol/L (98-107); Estimated GFR 59; Globulin 3.6 g/dL (2.4-3.5); Glucose 89 mg/dL (70-105); Potassium 4.1 mmol/L (3.5-5.1); Protein, Total 8.2 g/dL (6.0-8.3); Sodium 135 mmol/L (136-145)
== END 2021-12-20 09:12 | disposition home or self-care (01) ==
LOC: BURERS 06:13
DX: S62.512B Displaced fracture of proximal phalanx of left thumb, initial encounter for open fracture (principal); I10 Essential (primary) hypertension; F17.210 Nicotine dependence, cigarettes, uncomplicated; Z79.899 Other long term (current) drug therapy; V09.9XXA Pedestrian injured in unspecified transport accident, initial encounter
CPT/HCPCS: 12002; 36415; 80053; 85025; 85610; 96361; 96365; 96375; J0690; J2001; J2270

== ENCOUNTER 2023-01-14 10:52 | Emergency (ER) | payer MEDICARE ==
[2023-01-14] MEDS ORDERED: Morphine 4 MG/ML VIAL ONE (11:32)
[2023-01-14] MEDS ORDERED: Promethazine HCl 25 MG/ML VIAL ONE (11:32)
== END 2023-01-14 11:44 | disposition home or self-care (01) ==
LOC: BURERS 10:52
DX: F11.23 Opioid dependence with withdrawal (principal); I10 Essential (primary) hypertension; F17.210 Nicotine dependence, cigarettes, uncomplicated
CPT/HCPCS: 96372; 99284; J2270; J2550

== ENCOUNTER 2024-01-14 15:26 | Emergency (ER) | payer MEDICARE ==
[2024-01-14] MEDS ORDERED: Ibuprofen 800 MG TAB ONE (15:44)
== END 2024-01-14 16:38 | disposition home or self-care (01) ==
LOC: BURERS 15:26
DX: K05.00 Acute gingivitis, plaque induced (principal); M54.50 Low back pain, unspecified; G89.29 Other chronic pain; I10 Essential (primary) hypertension; F17.210 Nicotine dependence, cigarettes, uncomplicated
CPT/HCPCS: 70150

== ENCOUNTER 2024-06-12 12:31 | Emergency (ER) | payer MEDICARE ==
[2024-06-12] MEDS ORDERED: Acetaminophen 325 MG TAB ONE (12:59)
[2024-06-12] MEDS ORDERED: Morphine 4 MG/ML VIAL ONE (12:59)
== END 2024-06-12 13:47 | disposition home or self-care (01) ==
LOC: BURERS 12:31
DX: M62.830 Muscle spasm of back (principal); I10 Essential (primary) hypertension; F17.210 Nicotine dependence, cigarettes, uncomplicated; Z79.899 Other long term (current) drug therapy
CPT/HCPCS: 96374; J2270

== ENCOUNTER 2024-08-02 14:48 | Emergency (ER) | payer MEDICARE ==
[2024-08-02] MEDS ORDERED: HYDROcodone/Acetaminophen 10/325 mg Tablet ONE (15:11)
== END 2024-08-02 15:23 | disposition home or self-care (01) ==
LOC: BURERS 14:48
DX: M79.10 Myalgia, unspecified site (principal); Z87.39 Personal history of other diseases of the musculoskeletal system and connective tissue; I10 Essential (primary) hypertension; F17.210 Nicotine dependence, cigarettes, uncomplicated; Z79.899 Other long term (current) drug therapy
CPT/HCPCS: 99283